=== PATIENT | male | born 1975 | race Caucasian/White ===

== ENCOUNTER 2017-06-27 12:57 | Emergency (ER) | payer SELFPAY ==
[~2017-06-27] VITALS: Ht 170.2 cm; Wt 70.0 kg
[~2017-06-27 12:57] MED LIST: (None)3.5 GM OP; GENTAMICIN15 ML/BTL OP
[2017-06-27] MEDS ORDERED: CIPROFLOXACN500 MG PO (14:29)
[2017-06-27 14:35] VITALS: BP 129/74
== END 2017-06-27 14:35 | disposition home or self-care (01) | DRG 605 ==
LOC: ED 12:57
DX: S91.331A Puncture wound without foreign body, right foot, initial encounter (principal); W22.8XXA Striking against or struck by other objects, initial encounter; Y93.61 Activity, american tackle football